=== PATIENT | male | born 1965 | race Two or more races ===

== ENCOUNTER 2019-02-02 21:01 | Emergency (ER) | payer MEDICARE, MEDICAID ==
[~2019-02-02] VITALS: Ht 182.9 cm; Wt 113.4 kg
[2019-02-02 21:21] VITALS: BP 137/90
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
== END 2019-02-02 22:05 | disposition home or self-care (01) ==
LOC: ER 21:03
DX: M79.604 Pain in right leg (principal); I10 Essential (primary) hypertension; Z59.0 Homelessness
CPT/HCPCS: Z7502

== ENCOUNTER 2022-03-20 08:28 | Emergency (ER) | payer MEDICARE, OTHER ==
[~2022-03-20] VITALS: Ht 175.3 cm; Wt 106.6 kg
--- NOTE | 2022-03-20 08:56 | NUR ---
DR MADERA AT BEDSIDE AT THIS TIME
--- NOTE | 2022-03-20 08:56 | NUR ---
Cruzito garcia in [facility] - 03/20/22 at 0856 by KENYA MD AT [facility]
--- NOTE | 2022-03-20 08:57 | NUR ---
BIBFAMILY C/O HEADACHE 6/10 AND DIZZINESS X5DAYS, HX OF HTN BP 156/92. PT ON RA NO SIGNS OF DISTRESS OR LABORED BREATHING. A/OX3 PT ATTACHED TO MONITOR. WILL CONTINUE TO MONITOR PT.
[2022-03-20] MEDS ORDERED: IV NS 0.9% 1,000 ML BAG IV ONE (09:00)
[2022-03-20 09:20] LABS: BASOPHILS % (AUTO) 0.4 % (0.0-2.0); EOSINOPHILS % (AUTO) 0.8 % (0.0-6.0); HEMATOCRIT 43 % (39-51); LYMPHOCYTES % (AUTO) 18.5 % (20.0-44.0); MEAN CORPUSCULAR HGB CONC 35 g/dl (31.0-36.0); MEAN CORPUSCULAR VOLUME 87 fL (80-96); MONOCYTES # (AUTO) 0.4 K/uL (0.1-1.30); MONOCYTES % (AUTO) 6.7 % (2.0-12.0); NEUTROPHILS # (AUTO) 3.8 K/uL (1.8-8.9); NEUTROPHILS % (AUTO) 73.6 % (43.0-81.0); PLATELET COUNT (AUTO) 176 K/uL (150-450); RED BLOOD CELL COUNT(AUTO) 4.93 MIL/uL (4.5-6.0); WHITE BLOOD COUNT (AUTO) 5.2 K/uL (4.3-11.0)
--- NOTE | 2022-03-20 09:20 | NUR ---
COVID ANTIGEN TEST COMPLETED AT THIS TIME
[2022-03-20 09:39] LABS: ALANINE AMINOTRANSFERASE 35 U/L (12-78); ALBUMIN 4.3 g/dL (3.4-5.0); ALKALINE PHOSPHATASE 52 U/L (46-116); ASPARTATE AMINOTRANSFERASE 13 U/L (15-37); BILIRUBIN,DIRECT 0.1 mg/dL (0.0-0.2); BILIRUBIN,TOTAL 0.4 mg/dL (0.2-1.0); CALCIUM, SERUM 9.5 mg/dL (8.5-10.1); CARBON DIOXIDE 31 mmol/L (21-32); CHLORIDE 103 mmol/L (98-107); GLUCOSE 217 mg/dL (74-106); POTASSIUM 4.8 mmol/L (3.5-5.1); SODIUM SERUM 139 mmol/L (136-145); UREA NITROGEN, BLOOD 18 mg/dL (7-18)
[2022-03-20] MEDS ORDERED: KETOROLAC TROMETHAMINE INJ 30 MG/ML VIAL IV ONE (10:00)
[2022-03-20] MEDS ORDERED: METOCLOPRAMIDE HCL 10 MG/2 ML VIAL IV ONE (10:00)
[2022-03-20] MEDS ORDERED: diphenhydrAMINE HCL 50 MG/ML VIAL IV ONE (10:00)
--- NOTE | 2022-03-20 10:18 | NUR ---
URINE COLLECTED AND SENT TO LAB
[2022-03-20] MEDS ORDERED: METOCLOPRAMIDE HCL 10 MG/2 ML VIAL ONE (10:23)
[2022-03-20] MEDS ORDERED: KETOROLAC TROMETHAMINE 15 MG/ML VIAL ONE (10:23)
[2022-03-20] MEDS ORDERED: diphenhydrAMINE HCL 50 MG/ML VIAL ONE (10:23)
[2022-03-20 11:37] LABS: BILIRUBIN,URINE NEGATIVE (NEGATIVE); COLOR,URINE YELLOW (YELLOW); LEUKOCYTE ESTERASE ,URINE NEGATIVE (NEGATIVE); NITRITE, URINE NEGATIVE (NEGATIVE); PROTEIN,URINE NEGATIVE (NEGATIVE); UGLUCOSE NEGATIVE (NEGATIVE); UROBILINOGEN,URINE 0.2 EU/dL (0.2)
--- NOTE | 2022-03-20 12:24 | NUR ---
COVID PCR TEST COLLECTED AND SENT
--- NOTE | 2022-03-20 12:30 | NUR ---
IV removed. Catheter intact and site benign. Pressure and 4x4 applied to site. No bleeding noted.Patient discharged to home in stable condition. Written and verbal after care instructions given. Patient verbalizes understanding of instruction.
[2022-03-20 12:36] VITALS: BP 155/89
== END 2022-03-20 12:37 | disposition home or self-care (01) ==
LOC: ER 08:33
DX: R51.9 Headache, unspecified (principal); R42 Dizziness and giddiness; I10 Essential (primary) hypertension; R73.9 Hyperglycemia, unspecified; Z20.822 Contact with and (suspected) exposure to COVID-19
CPT/HCPCS: 36415; 71045; 80048; 80076; 81003; 82962; 84484; 85025; 87426; 93005; 96361; 96374; 96375; 99285; J1200; J1885; J2765; J7030 ×2; C9803; U0003